=== PATIENT | male | born 1950 ===

== ENCOUNTER 2018-12-16 12:10 | Emergency (ER) | payer MEDICARE ==
[2018-12-16 12:32] VITALS: BP 125/77; PULSE 80; RESP 18; TEMP 97.2; O2SAT 125
[2018-12-16 13:32] LABS: BASO % 0.7 % (0.0-2.0); EOS # 0.1 K/uL (0.0-0.7); EOS % 2.3 % (0.0-4.0); HEMOGLOBIN 14.9 g/dL (12.0-18.0); LYMPH # 1.5 K/uL (1.0-4.3); LYMPH % 27.4 % (20.0-40.0); MEAN CELL VOLUME 86.9 fl (80.0-94.0); MEAN CORPUSCULAR HEMOGLOBIN 29.6 pg (27.0-31.0); MEAN CORPUSCULAR HGB CONC 34.1 g/dL (33.0-37.0); MEAN PLATELET VOLUME 8.6 fl (7.2-11.7); MONO # 0.6 K/uL (0.0-0.8); MONO % 11.7 % (0.0-10.0); NEUT # 3.2 K/uL (1.8-7.0); NEUT % 57.9 % (50.0-75.0); NRBC % 0.3 % (0.0-0.0); RBC 5.02 Mil/uL (4.40-5.90); RED CELL DISTRIBUTION WIDTH 13.1 % (11.5-14.5); WHITE BLOOD COUNT 5.5 K/uL (4.8-10.8)
[2018-12-16 13:41] LABS: BLOOD UREA NITROGEN 25 mg/dl (9-20); CALCIUM 9.2 mg/dL (8.4-10.2); GFR NON-AFRICAN AMERICAN > 60
--- NOTE | 2018-12-16 13:56 | ED PDOC ---
History of Present Illness History of Present Illness: 68 y/o M with HTN, HL, Bovine Aortic valve repair in 09/2018 who presents with cough, body aches x 3 weeks. Pt states that since his valve repair in September 2018, he has had multiple colds. He again began having a cough occasionally productive of whitish green sputum about 3 weeks ago. He has intermittent body aches and headache as well as mild sore throat that began 1 week ago. Denies ear pain, N/V, diarrhea, dizziness. He has also been having intermittent SOB with activity. Denies orthopnea/PND or chest pain. He has been using over the counter medication such as Theraflu for cough with minimal improvement. HPI: Influenza Time Seen by Provider: 12/16/18 12:41 Chief Complaint: Flu-like Symptoms Past Medical History Reviewed: Historical Data, Nursing Documentation, Vital Signs Vital Signs: Last Vital Signs Temp 97.2 F L 12/16/18 12:29 Pulse 80 12/16/18 12:29 Resp 18 12/16/18 12:29 BP 125/77 12/16/18 12:29 Pulse Ox 125 H 12/16/18 12:29 - Medical History PMH: HTN - Surgical History Other surgeries: bovine AVR 09/2018 - Family History Family History: States: Unknown Family Hx - Home Medications Home Medications: Ambulatory Orders Medication Instructions Recorded Chlorpheniramine/Dextromethorp 2 tab PO Q4 PRN 7 Days tablet 12/16/18 [Coricidin Hbp Cough & Cold Tab] - Allergies Allergies/Adverse Reactions: Allergies Allergy/AdvReac Type Severity Reaction Status Date / Time No Known Allergies Allergy Verified 12/16/18 12:28 Review of Systems Constitutional: Negative for: Fever, Chills ENT: Positive for: Throat Pain. Negative for: Ear Pain, Nose Discharge, Nose Congestion Cardiovascular: Negative for: Chest Pain Respiratory: Positive for: Cough, Shortness of Breath, SOB with Exertion, Sputum. Negative for: Pleuritic Pain Physical Exam - Reviewed Nursing Documentation Reviewed: Yes Vital Signs Reviewed: Yes - Physical Exam Appears: Positive for: Well, No Acute Distress Skin: Positive for: Normal Color Eye Exam: Positive for: Normal appearance ENT: Positive for: Normal ENT Inspection. Negative for: Pharyngeal Erythema, Tonsillar Exudate, Tonsillar Swelling Neck: Positive for: Normal Cardiovascular/Chest: Positive for: Regular Rate, Rhythm Respiratory: Positive for: Normal Breath Sounds Lymphatic: Positive for: Normal Exam Neurological/Psych: Positive for: Awake, Alert, Oriented Medical Decision Making Medical Decision Making: CBC, CMP EKG CXR PA and lateral Rapid Flu Rapid flu negative EKG: sinus, HR 68, possible inferior infarct, LVH. No prior for comparison. CXR read by me: cardiomegaly, no acute lung pathology. Labs wnl. Patient advised to follow up with his primary care doctor for further evaluation of symptoms if they persisten. Take Coricidin for cough and Tylenol/Ibuprofen for body discomfort. - Laboratory Results Result Diagrams: 12/16/18 13:20 12/16/18 13:20 - ECG O2 Sat by Pulse Oximetry: 125 Disposition - Clinical Impression Clinical Impression: URI (upper respiratory infection) - Patient ED Disposition Is Patient to be Admitted: No Counseled Patient/Family Regarding: Studies Performed, Diagnosis, Need For Follo wup - Disposition Referrals: [facility] [Outside] Disposition: Routine/Home Disposition Time: 15:15 Condition: STABLE Additional Instructions: follow up with his primary care doctor for further evaluation of symptoms if they persist. Take Coricidin for cough and Tylenol/Ibuprofen for body discomfort. Return to ER if you develop progressive shortness of breath or chest pain. Prescriptions: Chlorpheniramine/Dextromethorp [Coricidin Hbp Cough & Cold Tab] 2 tab PO Q4 PRN 7 Days tablet PRN Reason: Cough And Congestion Instructions: Viral Upper Respiratory Infection, Adult (DC) Forms: [employer] (Micronesian), [facility] ED School/Work Excuse Print Language: UPPER SORBIAN
--- NOTE | 2018-12-16 15:15 | RAD ---
Date of service: 12/16/2018 HISTORY: shortness of breath, cough COMPARISON: 03/21/2013. TECHNIQUE: Chest PA and lateral FINDINGS: LUNGS: Left lower lobe infiltrate. PLEURA: No significant pleural effusion identified. No pneumothorax apparent. CARDIOVASCULAR: No radiographic findings to suggest acute or significant cardiovascular disease. Incidental Finding(s): Postoperative changes related to sternotomy. Atherosclerotic calcifications identified primarily aortic arch. OSSEOUS STRUCTURES: No significant abnormalities. VISUALIZED UPPER ABDOMEN: Normal. OTHER FINDINGS: None. IMPRESSION: Left lower lobe infiltrate likely pneumonia.
--- NOTE | 2018-12-16 19:15 | CARD ---
APPROVED REPORT Date of service: 12/16/2018 EKG Measurement Heart [id number] <Conclusion> Normal sinus rhythm Possible Left atrial enlargement Left ventricular hypertrophy Possible Inferior infarct, age undetermined Abnormal ECG
== END 2018-12-16 15:15 | disposition home or self-care (01) ==
LOC: H.ER 12:10
DX: J06.9 Acute upper respiratory infection, unspecified (principal)